=== PATIENT | female | born 1980 | race Caucasian/White ===

== ENCOUNTER 2023-09-02 16:38 | Emergency (ER) | payer SELFPAY ==
[~2023-09-02] VITALS: Ht 152.4 cm; Wt 58.1 kg
[2023-09-02 16:49] VITALS: BP 115/67; PULSE 68; RESP 20; TEMP 98.4; O2SAT 99
[2023-09-02 18:03] LABS: BASOPHILS % (AUTO) 0.7 % (0.0-2.0); EOSINOPHILS # (AUTO) 0.1 K/uL (0-0.4); EOSINOPHILS % (AUTO) 1.6 % (0.0-4.0); HEMATOCRIT 35.9 % (36-48); HEMOGLOBIN 11.9 g/dL (12.0-16.0); LYMPHOCYTES # (AUTO) 2.4 K/uL (2.5-16.5); LYMPHOCYTES % (AUTO) 43.2 % (20.5-51.1); MEAN CORPUSCULAR HEMOGLOBIN 27 pg (27-31); MEAN CORPUSCULAR HGB CONC 33 g/dL (33-37); MEAN CORPUSCULAR VOLUME 80.2 fL (80-94); MONOCYTES # (AUTO) 0.5 K/uL (0.8-1.0); NEUTROPHILS # (AUTO) 2.4 K/uL (1.8-7.7); NEUTROPHILS % (AUTO) 44.5 % (42.2-75.2); PLATELET COUNT (AUTO) 285 K/uL (140-450); RED BLOOD CELL COUNT(AUTO) 4.47 MIL/uL (4.20-5.40); RED CELL DISTRIBUTION WIDTH 16.1 % (11.6-13.7); WHITE BLOOD COUNT (AUTO) 5.5 K/uL (4.8-10.8)
[2023-09-02 18:25] LABS: ANION GAP 5.6 (8-16); CALCIUM 8.8 mg/dL (8.5-10.1); CREATININE 0.7 mg/dL (0.6-1.3); POTASSIUM 3.6 mmol/L (3.5-5.1)
[2023-09-02] MEDS ORDERED: IBUP-2213 PO (19:19)
[2023-09-02] MEDS ORDERED: DOCU-299 PO (19:19)
[2023-09-02 19:25] VITALS: BP 115/67; PULSE 68; RESP 20; TEMP 98.4; O2SAT 99
[2023-09-02] MEDS: KETOROLAC 60 MG/2 ML VIAL IM ONE (19:28)
== END 2023-09-02 19:25 | disposition home or self-care (01) ==
LOC: MED 16:38
DX: K64.4 Residual hemorrhoidal skin tags (principal)
CPT/HCPCS: 36415; 80048; 85025; 99283